=== PATIENT | female | born 1975 | race Two or more races ===

== ENCOUNTER → 2017-07-11 | Outpatient (CLI) | payer OTHER ==
[~2017-07-11] MED LIST: DOLOGESIC CAPLE1 TAB PO; MOTRIN800 MG PO
== END | disposition home or self-care (01) ==
LOC: SONOGRAMA 11:51
DX: D69.2 Other nonthrombocytopenic purpura (principal); G91.9 Hydrocephalus, unspecified; Q03.1 Atresia of foramina of Magendie and Luschka; E03.8 Other specified hypothyroidism

== ENCOUNTER 2018-05-15 10:15 | Outpatient (CLI) | payer OTHER | END 2018-05-15 11:30 | disposition home or self-care (01) | LOC: MRI 10:15 | DX: N84.0 Polyp of corpus uteri (principal); N92.5 Other specified irregular menstruation | CPT/HCPCS: 72196 ==

== ENCOUNTER 2018-06-17 10:46 | Outpatient (CLI) | payer OTHER | END 2018-06-17 10:51 | disposition home or self-care (01) | LOC: RAD 10:46 | DX: Z01.818 Encounter for other preprocedural examination (principal); N84.0 Polyp of corpus uteri; R97.1 Elevated cancer antigen 125 [CA 125]; R79.81 Abnormal blood-gas level; N39.0 Urinary tract infection, site not specified; D64.89 Other specified anemias; N92.5 Other specified irregular menstruation ==

== ENCOUNTER → 2018-06-17 | Outpatient (CLI) | payer OTHER | END | disposition home or self-care (01) | LOC: NUCLEAR 10:29 | DX: Z01.818 Encounter for other preprocedural examination (principal); N92.6 Irregular menstruation, unspecified; N84.0 Polyp of corpus uteri; R97.1 Elevated cancer antigen 125 [CA 125]; D64.9 Anemia, unspecified; R79.89 Other specified abnormal findings of blood chemistry; N39.0 Urinary tract infection, site not specified ==

== ENCOUNTER 2018-06-24 07:52 | Inpatient (IN) | payer OTHER ==
[~2018-06-24] VITALS: Ht 157.5 cm; Wt 49.9 kg
== END 2018-06-26 11:37 | disposition home or self-care (01) | DRG 743 ==
LOC: SURH 06-25 06:44 → O/R 06-25 06:44 → SURH 06-25 07:00
PROVIDERS: ADMIT Obstetrics & Gynecology Gynecologic Oncology
PROC: 0UT74ZZ Resection of Bilateral Fallopian Tubes, Percutaneous Endoscopic Approach (ICD-10-PCS; 2018-06-25)
PROC: 0UT94ZZ Resection of Uterus, Percutaneous Endoscopic Approach (ICD-10-PCS; principal; 2018-06-25 07:00)
DX: D25.1 Intramural leiomyoma of uterus (principal); D25.2 Subserosal leiomyoma of uterus; N83.8 Other noninflammatory disorders of ovary, fallopian tube and broad ligament; N84.0 Polyp of corpus uteri; N73.6 Female pelvic peritoneal adhesions (postinfective)

== ENCOUNTER 2018-10-21 13:18 | Outpatient (CLI) | payer OTHER | END 2018-10-21 13:29 | disposition home or self-care (01) | LOC: RAD 13:18 | DX: G91.0 Communicating hydrocephalus (principal) ==

== ENCOUNTER 2021-09-19 11:13 | Outpatient (CLI) | payer OTHER | END 2021-09-19 11:22 | disposition home or self-care (01) | LOC: MAMO-SONO 11:13 | DX: Z12.31 Encounter for screening mammogram for malignant neoplasm of breast (principal) ==

== ENCOUNTER 2024-11-24 08:24 | Outpatient (CLI) | payer OTHER | END 2024-11-24 08:35 | disposition home or self-care (01) | LOC: SONOGRAMA 08:24 | PROVIDERS: ATTEND Internal Medicine Gastroenterology | DX: K74.3 Primary biliary cirrhosis (principal) ==